=== PATIENT | male | born 1985 | race Caucasian/White ===

== ENCOUNTER 2021-01-22 17:36 | Emergency (ER) | payer MEDICAID ==
[~2021-01-22] VITALS: Ht 182.9 cm; Wt 79.5 kg
[2021-01-22 17:50] VITALS: BP 140/101
== END 2021-01-22 18:59 | disposition home or self-care (01) ==
LOC: ER 17:36
DX: U07.1 COVID-19 (principal); R05.9 Cough, unspecified; F17.210 Nicotine dependence, cigarettes, uncomplicated; Z72.89 Other problems related to lifestyle
CPT/HCPCS: 36415; 71045; 99284; U0003; U0005

== ENCOUNTER 2021-06-05 02:02 | Emergency (ER) | payer MEDICAID ==
[~2021-06-05] VITALS: Ht 185.4 cm; Wt 75.0 kg
[2021-06-05 02:08] VITALS: BP 139/94
== END 2021-06-05 04:08 | disposition left against medical advice (07) ==
LOC: ER 02:03
DX: J11.1 Influenza due to unidentified influenza virus with other respiratory manifestations (principal); Z20.822 Contact with and (suspected) exposure to COVID-19; Z53.21 Procedure and treatment not carried out due to patient leaving prior to being seen by health care provider
CPT/HCPCS: 87635; C9803

== ENCOUNTER 2021-06-09 03:41 | Emergency (ER) | payer MEDICAID ==
[~2021-06-09] VITALS: Ht 185.4 cm; Wt 79.5 kg
[2021-06-09 05:09] VITALS: BP 132/86
--- NOTE | 2021-06-09 05:30 | NUR ---
wENT INTO ROOM PT DISCHARGE BY dR DESIR. FELT BETTER.
[2021-06-09] MEDS ORDERED: ALBU8HFA PO (05:48)
== END 2021-06-09 05:30 | disposition home or self-care (01) ==
LOC: ER 03:42
DX: J18.9 Pneumonia, unspecified organism (principal); R05.9 Cough, unspecified; R07.89 Other chest pain; Z72.89 Other problems related to lifestyle; Z79.899 Other long term (current) drug therapy
CPT/HCPCS: 71045; 71250; 99284

== ENCOUNTER 2023-07-20 14:25 | Emergency (ER) | payer MEDICAID | END 2023-07-20 16:28 | disposition left against medical advice (07) | LOC: ER 14:25 | DX: J11.1 Influenza due to unidentified influenza virus with other respiratory manifestations (principal); Z53.21 Procedure and treatment not carried out due to patient leaving prior to being seen by health care provider | CPT/HCPCS: 99281 ==

== ENCOUNTER 2024-03-11 09:55 | Emergency (ER) | payer MEDICAID, SELFPAY ==
[~2024-03-11] VITALS: Ht 185.4 cm; Wt 81.8 kg
[2024-03-11 10:00] VITALS: BP 136/88; PULSE 95; RESP 15; O2SAT 98
[2024-03-11] MEDS: TETanus/Pertussis (Acell)/Diphther VAC/PF (Tdap-Adult) 0.5ml syringe IMVAC ONE (11:09)
[2024-03-11] MEDS ORDERED: CEPH500C3 PO (11:11)
[2024-03-11] MEDS: LIDOcaine 1% W/epiNEPHrine 1:100,000 20ml vial IJ ONE (11:14)
[2024-03-11 11:56] VITALS: TEMP 97.8
== END 2024-03-11 12:00 | disposition home or self-care (01) ==
LOC: ER 09:55
DX: S61.241A Puncture wound with foreign body of left index finger without damage to nail, initial encounter (principal); Z79.2 Long term (current) use of antibiotics; W29.4XXA Contact with nail gun, initial encounter; Y93.89 Activity, other specified; Y92.89 Other specified places as the place of occurrence of the external cause; Y99.8 Other external cause status
CPT/HCPCS: 10120; 73140; 90471; 90715; 99285; A6258; A6449

== ENCOUNTER 2024-03-23 16:55 | Emergency (ER) | payer MEDICAID, SELFPAY ==
[~2024-03-23] VITALS: Ht 185.4 cm; Wt 77.1 kg
[~2024-03-23 16:55] MED LIST: CEPH500C3 PO
[2024-03-23 18:08] VITALS: BP 152/91; PULSE 98; RESP 18; TEMP 98.2; O2SAT 98
== END 2024-03-23 18:14 | disposition home or self-care (01) ==
LOC: ER 16:55
DX: S61.211D Laceration without foreign body of left index finger without damage to nail, subsequent encounter (principal); Z79.2 Long term (current) use of antibiotics; X58.XXXD Exposure to other specified factors, subsequent encounter
CPT/HCPCS: 99281